=== PATIENT | female | born 1965 | race Caucasian/White ===

== ENCOUNTER → 2016-10-26 | Outpatient (CLI) | payer BC ==
[~2016-10-26] MED LIST: BUSP5TAB59 PO; IBUP-103 PO; LEVO175T PO; LORA-741 PO; OMEP20CA9 PO; ONDA4TAB10 SL; PRT/40 PO; SERT100T PO; SERT1TAB72 PO; WLLXL300 PO
[2016-10-26 13:47] LABS: THYROID STIMULATING HORMONE 0.066 uIu/ml (0.300-4.500)
== END | disposition home or self-care (01) ==
LOC: C.LAB1850 11:30
PROVIDERS: ATTEND Psychiatry & Neurology Psychiatry
DX: F32.89 Other specified depressive episodes (principal)

== ENCOUNTER 2016-10-31 14:37 | Emergency (ER) | payer BC ==
[~2016-10-31] VITALS: Ht 162.6 cm; Wt 95.2 kg
[~2016-10-31 14:37] MED LIST changes: -IBUP-103 PO; -LEVO175T PO; -LORA-741 PO; -OMEP20CA9 PO; -ONDA4TAB10 SL; -PRT/40 PO; -SERT1TAB72 PO; -WLLXL300 PO
[2016-10-31 14:41] VITALS: TEMP 36.3; Ht 162.6 cm; Wt 95.2 kg
[2016-10-31] MEDS ORDERED: KETOROLAC TROMETHAMINE 30 MG/ML VIAL IV STA (14:52)
[2016-10-31] MEDS ORDERED: SODIUM CHLORIDE 0.9% 1000ML 1,000 ML IV ONE (15:00)
[2016-10-31] MEDS ORDERED: ONDANSETRON INJ 2 MG/ML 2 ML VIAL IV PRN (15:00)
--- NOTE | 2016-10-31 15:09 | EMERGENCY ROOM VISIT NOTE ---
History Report prepared by Norman: Darion Jefferson Under the Supervision of: Dr. Albin Colon M.D. First contact with patient: 14:47 Chief Complaint: HEADACHE Stated Complaint: VOMITING, HEADACHE History of Present Illness The patient is a 51 year old female who presents to the Emergency Room with complaints of a persistent headache that began 1 week ago. She rates her pain a 6/10 in severity. When her pain began, she thought it was just a migraine headache. She used to get headaches very frequently, but only gets them occasionally now. She did not go to her PCP because her headache was not as severe as her past migraines. However, she is also experiencing nausea and vomiting, which is abnormal for her. She was able to eat dinner last night, but today she threw up her lunch. She denies any fevers or chills. She notes that she has been dealing with a lot of stressors lately. She is worried that she may be dehydrated. Source of History: patient Onset: 1 week ago Position: head Symptom Intensity: 6/10 Quality: ache Timing: constant Associated Symptoms: + nausea, + vomiting, No fevers, No chills Review of Systems All systems have been listed, reviewed, and are negative other than those previously mentioned. Please see Additional Medical History Sheet. Past Medical & Surgical Medical Problems: (1) section (2) Hypothyroidism Family History Cancer Heart disease Hypertension Social History Smoking Status: Never Smoker Drug Use: none Marital Status: Housing Status: lives with family Occupation Status: employed Current/Historical Medications Scheduled Bupropion HCl (Bupropion HCl Xl), 300 MG PO DAILY Levothyroxine Sodium (Synthroid), 175 MCG PO DAILY Omeprazole (Prilosec), 20 MG PO DAILY Pantoprazole (Pantoprazole Sodium), 40 MG PO UD Sertraline Hcl (Zoloft), 37.5 MG PO DAILY Scheduled PRN Ibuprofen Tab (Advil), 600-800 MG PO Q8 PRN for Pain Lorazepam (Ativan), 0.5 MG PO BID PRN for Anxiety Ondasetron Odt (Zofran Odt), 4 MG SL Q4H PRN for nausea Allergies Coded Allergies: Penicillins (Verified Allergy, Mild, 07/04/14) Physical Exam Vital Signs Date Time Temp Pulse Resp B/P (MAP) Pulse Ox O2 Delivery O2 Flow Rate FiO2 10/31/16 16:38 72 18 127/83 97 Room Air 10/31/16 14:41 36.3 70 18 152/93 98 Room Air Physical Exam GENERAL: Patient awake, alert, oriented x 3. Patient follows commands. Patient is in minimal distress. Patient does not appear toxic. Patient is adequately hydrated and well-nourished. SKIN: No erythema, pallor, cyanosis or rash HEENT: Normal head, pupils equal, reactive to light and accommodation. Ears normal. Oral cavity and posterior pharynx appear normal. Neck: Without adenopathy, no neck vein distention. Supple and nontender. No meningeal signs. LUNGS: Clear to auscultation. No wheezes, no rales, no rhonchi. HEART: No murmurs. No gallops. No rubs ABDOMEN: Soft and nontender. EXTREMITIES: No signs of trauma. No pedal or pretibial edema. No calf or thigh tenderness. NEUROLOGIC: Cranial nerves II-XII within normal limits. No gross motor sensory function deficits. Medical Decision & Procedures Laboratory Results 10/31/16 15:10 10/31/16 15:10 Test 10/31/16 15:10 Red Blood Count 4.97 M/uL (4.2-5.4) Mean Corpuscular Volume 86.9 fL (80-100) Mean Corpuscular Hemoglobin 30.8 pg (25-34) Mean Corpuscular Hemoglobin Concent 35.4 g/dl (32-36) RDW Standard Deviation 39.6 fL (36.4-46.3) RDW Coefficient of Variation 12.4 % (11.5-14.5) Mean Platelet Volume 9.3 fL (7.4-10.4) Anion Gap 8.0 mmol/L (3-11) Est Creatinine Clear Calc Drug Dose 60.7 ml/min Estimated GFR () 59.8 Estimated GFR (Non- 51.6 BUN/Creatinine Ratio 15.5 (10-20) Calcium Level 9.2 mg/dl (8.5-10.1) Laboratory results as stated above per my review. Medications Administered Medications (Trade) Dose Ordered Sig/Ulises Route Start Time Stop Time Status Last Admin Dose Admin Ondansetron HCl (Zofran Inj) 4 mg PRN PRN IV 10/31/16 15:00 10/31/16 17:58 DC 10/31/16 15:21 4 MG Sodium Chloride 1,000 ml @ 1,000 mls/hr Q1H ONCE IV 10/31/16 15:00 10/31/16 15:59 DC 10/31/16 15:20 1,000 MLS/HR Ketorolac Tromethamine (Toradol Inj) 30 mg NOW STAT IV 10/31/16 14:52 10/31/16 14:56 DC 10/31/16 15:20 30 MG ED Course 1447: Past medical records reviewed. The patient was evaluated in room B12B. A complete history and physical examination was performed. 1452: Ordered Toradol Inj 30 mg IV 1500: Ordered Sodium Chloride 1000 ml @ 1000 mls/hr IV, Zofran Inj 4 mg IV 1654: Upon reevaluation, the patient appeared to have improvement of her symptoms. She is feeling better. I discussed today's findings with her. She verbalized agreement of the treatment plan. She was discharged home. Medical Decision I considered multiple differential diagnoses including tension headache, migraine headache, cluster headache, sinus headache, and dehydration. Multiple labs were obtained. The patient does not have meningeal findings. She does not require spinal tap. The patient's pain seems most consistent with a tension headache. She does admit to significant amount stress. The patient was given Zofran which helped her nausea. She was given a liter of fluid. I believe that she can safely return home. She will be given a prescription for Zofran to take at home as needed. Medication Reconcilliation Current Medication List: was personally reviewed by me Blood Pressure Screening Patient's blood pressure: Normal blood pressure Blood pressure disposition: Did not require urgent referral Impression Primary Impression: Tension headache Scribe Attestation The scribe's documentation has been prepared under my direction and personally reviewed by me in its entirety. I confirm that the note above accurately reflects all work, treatment, procedures, and medical decision making performed by me. Departure Information Dispostion Home / Self-Care Prescriptions Ondasetron Odt (ZOFRAN ODT) 4 Mg Tab 4 MG SL Q4H Y for nausea, #10 TAB Prov: Albin Colon M.D. 10/31/16 Referrals Tanvir Garcia M.D. (PCP) Forms HOME CARE DOCUMENTATION FORM, IMPORTANT VISIT INFORMATION Patient Instructions ED Headache Tension, [facility] Additional Instructions 1 Zofran every 4 hours as needed for nausea. Drink extra fluids. 400-600 mg of ibuprofen every 6 hours as needed for headache. Follow-up with your family physician if headaches persist.
[2016-10-31] MEDS ORDERED: PRT/40 PO (15:14)
[2016-10-31] MEDS ORDERED: WLLXL300 PO (15:14)
[2016-10-31] MEDS ORDERED: SERT1TAB72 PO (15:14)
[2016-10-31] MEDS ORDERED: LORA-741 PO (15:14)
[2016-10-31] MEDS ORDERED: IBUP-103 PO (15:15)
[2016-10-31 15:18] LABS: HEMATOCRIT 43.2 % (37-47); MEAN CELL VOLUME 86.9 fL (80-100); MEAN CORPUSCULAR HEMOGLOBIN 30.8 pg (25-34); MEAN CORPUSCULAR HGB CONC 35.4 g/dl (32-36); MEAN PLATELET VOLUME 9.3 fL (7.4-10.4); PLATELET COUNT 190 K/uL (130-400); RED BLOOD COUNT 4.97 M/uL (4.2-5.4); WHITE BLOOD COUNT 5.22 K/uL (4.8-10.8)
[2016-10-31 15:37] LABS: BUN/CREATININE RATIO 15.5 (10-20); CALCIUM 9.2 mg/dl (8.5-10.1); CREATININE 1.2 mg/dl (0.60-1.20); POTASSIUM 4.3 mmol/L (3.5-5.1)
[2016-10-31 16:38] VITALS: BP 127/83; PULSE 72; O2SAT 97
[2016-10-31] MEDS ORDERED: ONDA4TAB10 SL (16:46)
[2016-10-31] MEDS ORDERED: OMEP20CA9 PO (21:00)
[2016-10-31] MEDS ORDERED: LEVO175T PO (21:00)
== END 2016-10-31 16:58 | disposition home or self-care (01) ==
LOC: C.EDB 14:38
DX: G44.209 Tension-type headache, unspecified, not intractable (principal); Z98.891 History of uterine scar from previous surgery; E03.9 Hypothyroidism, unspecified; Z82.49 Family history of ischemic heart disease and other diseases of the circulatory system; Z79.899 Other long term (current) drug therapy

== ENCOUNTER → 2016-11-29 | Outpatient (CLI) | payer BC ==
[~2016-11-29] MED LIST changes: -BUSP5TAB59 PO; +IBUP-103 PO; +LEVO175T PO; +LORA-741 PO; +OMEP20CA9 PO; +ONDA4TAB10 SL; +PANT40TA2 PO; -SERT100T PO; +SERT1TAB72 PO; +WLLXL300 PO
--- NOTE | 2016-11-29 13:35 | MAMMOGRAPHY REPORT ---
BILATERAL DIGITAL SCREENING MAMMOGRAM TOMOSYNTHESIS WITH CAD: 11/29/2016 CLINICAL HISTORY: Routine screening. TECHNIQUE: Breast tomosynthesis in addition to standard 2D mammography was performed. Current study was also evaluated with a Computer Aided Detection (CAD) system. COMPARISON: Comparison is made to exams dated: 11/27/2015 mammogram, 01/16/2013 mammogram, 01/12/2012 mammogram, 01/12/2010 mammogram, 01/05/2010 mammogram - [facility], and 08/15/2008. BREAST COMPOSITION: There are scattered areas of fibroglandular density in both breasts. FINDINGS: The parenchymal pattern is unchanged. No developing mass, architectural distortion or clus ter of suspicious microcalcifications is seen in either breast. IMPRESSION: ACR BI-RADS CATEGORY 2: BENIGN There is no mammographic evidence of malignancy. A 1 year screening mammogram is recommended. The pa tient will receive written notification of the results. Approximately 10% of breast cancers are not detected with mammography. A negative mammographic report should not delay biopsy if a clinically suggestive mass is present. Caterina Rice M.D. ay/:11/29/2016 09:19:30 Yard Worker: Jada LEE(R)(M), [facility] letter sent: Normal 1/2 BI-RADS Code: ACR BI-RADS Category 2: Benign
== END | disposition home or self-care (01) ==
LOC: C.MAMM 08:00
PROVIDERS: ATTEND Obstetrics & Gynecology
DX: Z12.31 Encounter for screening mammogram for malignant neoplasm of breast (principal)

== ENCOUNTER → 2017-03-03 | Outpatient (CLI) | payer OTHER | END | disposition home or self-care (01) | LOC: C.PAPS 11:24 | PROVIDERS: ATTEND Obstetrics & Gynecology | DX: Z12.4 Encounter for screening for malignant neoplasm of cervix (principal) ==